=== PATIENT | female | born 1995 | race Caucasian/White ===

== ENCOUNTER → 2017-10-04 11:11 | Outpatient (REF) | payer BC, SELFPAY | LOC: LAB 11:11 | PROVIDERS: Visit Provider Family Medicine | DX: N39.0 Urinary tract infection, site not specified (principal) | CPT/HCPCS: 87077; 87086; 87186 ==

== ENCOUNTER → 2018-07-04 12:03 | Outpatient (ROUT) | payer BC, SELFPAY | PROVIDERS: Visit Provider Family Medicine | DX: R30.0 Dysuria (principal) | CPT/HCPCS: 87086 ==

== ENCOUNTER → 2024-04-11 13:36 | Outpatient (CLI) | payer BC, SELFPAY ==
--- NOTE | 2024-04-11 13:37 | DI.RAD.S_ITS ---
PROCEDURE: XR ANKLE RT MIN 3V INDICATIONS: Right ankle pain TECHNIQUE: 3 views of the ankle were acquired. COMPARISON: None. FINDINGS: Bones: No fractures or dislocations. Ankle mortise is normally aligned. No suspicious bony lesions. The talar dome demonstrates no brianna abnormality. Soft tissues: No tibiotalar joint effusion. Achilles tendon appears normal. IMPRESSION: No displaced fractures are seen on these plain films. Dictated by: Rocco Haywood M.D. on 04/11/2024 at 12:57 Approved by: Rocco Haywood M.D. on 04/11/2024 at 12:58
== END ==
PROVIDERS: PCP Family Medicine; Referring Provider Registered Nurse; Visit Provider Registered Nurse
DX: M25.571 Pain in right ankle and joints of right foot (principal)
CPT/HCPCS: 73610

== ENCOUNTER → 2024-08-20 10:42 | Outpatient (CLI) | payer BC, SELFPAY ==
[2024-08-23 06:40] LABS: Miscellaneous to LabCorp KIT TEST
== END ==
PROVIDERS: PCP Family Medicine; Referring Provider Family Medicine; Visit Provider Family Medicine
DX: Z12.89 Encounter for screening for malignant neoplasm of other sites (principal); Z80.49 Family history of malignant neoplasm of other genital organs
CPT/HCPCS: 36415

== ENCOUNTER 2024-08-22 18:03 | Emergency (ER) | payer BC, SELFPAY ==
[2024-08-22 18:05] VITALS: BP 139/78; PULSE 116; RESP 17; TEMP 36.5; O2SAT 98; BMI 34.3
--- NOTE | 2024-08-22 18:24 | ED_ITS ---
HPI - GI Bleed General Chief complaint: GI Bleed Stated complaint: Internal Bleeding Time Seen by Provider: 08/22/24 18:14 Source: patient Mode of arrival: Ambulatory History of Present Illness HPI Narrative: Patient without any significant past medical history presenting to the emergency department from home for evaluation of lower GI bleed periods she states that today she was sitting on the toilet felt constipated was pushing and noticed some bright red blood per rectum. She denies any blood thinners denies any other symptoms such as headache visual disturbances chest pain shortness breath fever chills nausea vomiting abdominal pain or any other GI/ symptoms at this time. Related Data Previous Rx's ?Medication ?Instructions ?Recorded norethindrone acetate 1.5 1 tab PO QDAY ##3 03/27/17 mg-ethinyl estradiol 30 mcg tablet (Junel) varenicline tartrate 1 mg tablet 1 mg PO BID #56 tabs 07/23/24 (Chantix Continuing Month Box) phentermine 30 mg capsule 30 mg PO DAILY #30 caps 07/26 09/17 hydrocortisone acetate 25 mg 25 mg MA BID 5 days #12 e a 08/22/24 rectal suppository (Anusol-HC) Allergies Allergy/AdvReac Type Severity Reaction Status Date / Time No Known Drug Allergies Allergy Verified 08/22/24 18:05 Review of Systems Review of Systems Narrative: General: Denies fever, chills, weight loss HEENT: Denies headache, eye drainage, eye irritation, head trauma, sore throat, voice change Cardiovascular: Denies any chest pain, palpitations, tachycardia Respiratory: Denies any shortness of breath, cough, wheeze, stridor GI/: Positive bright red blood per rectum Denies any abdominal pain, nausea, vomiting, diarrhea, melanotic stools, urinary frequency, urinary retention, dysuria, hematuria MSK: Denies any joint pain, muscle pains, swelling Skin: Denies any rashes, lesions, discoloration Neuro: Denies any headache, lightheadedness, dizziness, fainting, weakness Psych: Denies SI/HI Patient History Medical History (Updated 08/22/24 @ 18:26 by Sathya Chadwick DO) ASCUS of cervix with negative high risk HPV Nicotine dependence Eating disorder (~2011) Depression (~2011) Anxiety (~2011) Obesity, Class II, BMI 35-39.9 Surgical History Anesthesia Foreign body (~09/29/19) S/P LASIK surgery of both eyes (~06/30/23) History of third molar tooth extraction (08/04/14) Family History Grandmother Cancer Hyperlipidemia Hypertension Grandmother Cancer Brother Mental health problem Social History Smoking Status: Current every day smoker Smoking Status: Current every day smoker tobacco type: vaping Exam Narrative Exam Narrative: General: Cooperative, well-developed, not in acute distress HEENT: Normocephalic, atraumatic, PERRLA, normal sclera, eyelids normal Neck: Active full range of motion, atraumatic Chest: Normal to inspection, negative crepitus, no overlying erythema ecchymosis Respiratory: Normal respiratory effort, not in acute respiratory distress, clear to auscultation bilaterally negative cough, wheeze, tachypnea, rhonchi, rales Cardiology: Regular rate rhythm negative gallop, murmur, rubs GI/: No tenderness to palpation, soft, non rigid, normal to inspection, nurse Lars district service manager, Hemoccult positive, noted palpable external hemorrhoid not thrombosed. No anal fissure, grossly normal MSK: Full active range of motion in all 4 extremities, atraumatic, no tenderness to palpation of any bony prominences Skin: No rashes or lesions noted Neuro: Alert awake oriented x3, moves all 4 extremities spontaneously, cranial nerves intact, able to answer all questions appropriately follows commands appropriately Psych: Cooperative, negative suicidal or homicidal ideations Initial Vital Signs Initial Vital Signs: Vital Signs Temperature 97.7 F 08/22/24 18:05 Pulse Rate 116 H 08/22/24 18:05 Respiratory Rate 17 08/22/24 18:05 Blood Pressure 139/78 08/22/24 18:05 Pulse Oximetry 98 08/22/24 18:05 Oxygen Delivery Method Room Air 08/22/24 18:05 Course Orders Ordered: ED Orders 08/22/24 18:25 CBC Auto Diff [Complete Blood Count AUTO DIFF] Stat CMP [Comprehensive Metabolic Panel] Stat MAG [Magnesium] Stat Vital Signs Vital signs: Vital Signs - 8 hr 06/29/25 18:05 Temperature 97.7 F Pulse Rate 116 H Respiratory Rate 17 Blood Pressure 139/78 Pulse Oximetry 98 Oxygen Delivery Method Room Air MDM - GI Bleed Differential Diagnosis Differential diagnosis: Likely hemorrhoids, gastritis, hematochezia, melena, anal fissure and other (Anemia) Lab Data 08/22/24 18:25 08/22/24 18:25 Labs: Lab Results 08/22/24 Range/Units 18:25 WBC 11.6 H (4.5-11.0) X10^3/uL RBC 4.87 (4.0-5.2) X10^6/uL Hgb 13.7 (12.0-16.0) g/dL Hct 41.0 (36-46) % MCV 84.3 (80-100) fL MCH 28.1 (26-34) PG MCHC 33.4 (30-36) % RDW 13.6 (11.6-14.8) % Plt Count 392 (150-400) X10^3/uL Neut % (Auto) 75.0 (50-75) % Lymph % (Auto) 19.7 L (25-40) % Mingo % (Auto) 4.4 (3-14) % Eos % (Auto) 0.6 L (2-4) % Baso % (Auto) 0.3 (0-2) % Neut # (Auto) 8700 H (4877-0780) /uL Lymph # (Auto) 2300 (7653-0492) /uL Mingo # (Auto) 500 (0-900) /uL Eos # (Auto) 100 (0-450) /uL Baso # (Auto) 0 (0-100) /uL Sodium 136 L (137-145) mmol/L Potassium 3.6 (3.4-5.1) mmol/L Chloride 103 (98-107) mmol/L Carbon Dioxide 20 L (22-32) mmol/L BUN 11 (7-17) mg/dL Creatinine 1.00 (0.52-1.04) mg/dL Estimated GFR > 60 (>60) mL/min BUN/Creatinine Ratio 11.0 (6-22) Glucose 108 H (70-99) mg/dL Calcium 9.4 (8.4-10.2) mg/dL Magnesium 1.8 (1.6-2.3) mg/dL Total Bilirubin 0.4 (0.2-1.3) mg/dL AST 24 (14-36) IU/L ALT 27 (<35) IU/L Alkaline Phosphatase 78 (38-126) U/L Total Protein 7.8 (6.3-8.2) g/dL Albumin 4.3 (3.5-5.0) g/dL Globulin 3.5 (1.7-4.1) g/dL Albumin/Globulin Ratio 1.2 (1.0-2.8) MDM Narrative Medical decision making narrative: 29-year-old female without any significant past medical history presents to the emergency department from home for evaluation of bright red blood per rectum. She states that earlier today she was feeling constipated saddle toilet was pushing and noticed some bright red blood while wiping. No history of hemorrhoids, on exam Hemoccult positive with noticeable external hemorrhoid non thrombosed. Patient had lab work hemoglobin stable, symptoms more likely secondary to hemorrhoids. Patient will be discharged home with symptomatic relief instructed follow up with the primary care verbalized understanding of this and agrees to being discharged home with outpatient follow up Discharge Plan Departure Patient Disposition: Home Clinical Impression: Hemorrhoid Instructions: DI for Hemorrhoids Activity Restrictions/Additional Instructions: Please follow up with the primary care doctor Please read the discharge instructions sheet carefully and bring all papers to all doctor follow-up visits, as it may contain information that your doctor may want to see. Disease processes change and evolve, if your symptoms worsen or if you develop any new symptoms that are concerning to you please return for evaluation. Your evaluation today does not show any evidence of any life- threatening/serious illnesses requiring admission to the hospital or surgery. Please follow-up with your doctor for re-evaluation in approximately 1 day. Seek immediate medical attention for any worrisome symptoms. *If you do not have a primary care provider please contact the [facility] Resource line at [phone]. They will ask some questions about your medical history and help get you set up with a doctor in the community. Prescriptions: New hydrocortisone acetate [Anusol-HC] 25 mg suppository 25 mg MA BID 5 Days Qty: 12 0RF No Action varenicline tartrate [Chantix Continuing Month Box] 1 mg tablet 1 mg PO BID Qty: 56 2RF phentermine 30 mg capsule 30 mg PO DAILY Qty: 30 0RF Rx Instructions: must administer 2 hours after breakfast norethindrone ac-eth estradiol [ ()] 1.5 MG/30 MCG tablet 1 tab PO QDAY Qty: 3 3RF Referrals: Eve Vaughan MD [Primary Care Provider, Family Practice] Stand Alone Forms: Patient Portal/API
[2024-08-22 18:33] LABS: Add Manual Diff / Slide Review NO; Basophils Absolute Auto 0 /uL (0-100); Basophils Percent Auto 0.3 % (0-2); Eosinophils Absolute Auto 100 /uL (0-450); Eosinophils Percent Auto 0.6 % (2-4); Hemoglobin 13.7 g/dL (12.0-16.0); Lymphocytes Absolute Auto 2300 /uL (1100-4500); Lymphocytes Percent Auto 19.7 % (25-40); Mean Corpuscular HGB Conc 33.4 % (30-36); Mean Corpuscular Hemoglobin 28.1 PG (26-34); Mean Corpuscular Volume 84.3 fL (80-100); Monocytes Absolute Auto 500 /uL (0-900); Monocytes Percent Auto 4.4 % (3-14); Neutrophils Absolute Auto 8700 /uL (1500-7000); Platelet Count 392 X10^3/uL (150-400); Red Blood Cell Count 4.87 X10^6/uL (4.0-5.2); Red Cell Distribution Width 13.6 % (11.6-14.8); White Blood Cell Count 11.6 X10^3/uL (4.5-11.0)
[2024-08-22 18:50] LABS: Alanine Aminotransferase 27 IU/L (<35); Albumin 4.3 g/dL (3.5-5.0); Albumin Globulin Ratio 1.2 (1.0-2.8); Alkaline Phosphatase 78 U/L (38-126); Aspartate Aminotransferase 24 IU/L (14-36); Bilirubin Total 0.4 mg/dL (0.2-1.3); Blood Urea Nitrogen 11 mg/dL (7-17); Calcium 9.4 mg/dL (8.4-10.2); Carbon Dioxide 20 mmol/L (22-32); Chloride 103 mmol/L (98-107); Estimated Glomerular Filt Rate > 60 mL/min (>60); Globulin 3.5 g/dL (1.7-4.1); Glucose 108 mg/dL (70-99); HEMOLYSIS < 15 (0-50); Magnesium 1.8 mg/dL (1.6-2.3); Potassium 3.6 mmol/L (3.4-5.1); Sodium 136 mmol/L (137-145); Total Protein 7.8 g/dL (6.3-8.2)
[2024-08-22 19:30] VITALS: BP 112/69; PULSE 104; RESP 16; O2SAT 100
== END 2024-08-22 19:31 | disposition home or self-care (01) ==
PROVIDERS: Emergency Provider Student in an Organized Health Care Education/Training Program; PCP Family Medicine
DX: K64.9 Unspecified hemorrhoids (principal)
CPT/HCPCS: 36415; 80053; 83735; 85025; 99283